=== PATIENT | female | born 1970 | race Two or more races ===

== ENCOUNTER 2018-11-23 19:49 | Inpatient (IN) | payer SELFPAY ==
[~2018-11-23] VITALS: Ht 162.6 cm; Wt 87.5 kg
[2018-11-23 21:01] LABS: Basophils # (auto) 0.1 uL; Basophils % (auto) 0.8 % (0.0-2.0); Eosinophils # (auto) 0.2 uL; Lymphocytes # (auto) 2.9 uL; Mean Corpuscular Volume 89.2 fL (80.0-100.0); White Blood Cell 8.5 10^3/uL (4.4-10.8)
[2018-11-23 21:03] LABS: Eosinophils % (auto) 2.4 % (0.0-7.0); Hemoglobin 14.8 g/dL (12.2-16.2); Lymphocytes % (auto) 34.1 % (10.0-50.0); Mean Corpuscular Hemoglobin 30.6 pg (28.0-32.0); Mean Corpuscular Hgb Conc. 34.3 g/dL (32.0-36.0); Monocytes # (auto) 0.5 uL; Monocytes % (auto) 6.3 % (0.0-12.0); Neutrophils # (auto) 4.8 uL; Neutrophils % (auto) 56.4 % (37.0-80.0); Nucleated Red Blood Cells % 0.3 %; Red Blood Cells 4.83 10^6/uL (4.0-5.20); Red Cell Distribution Width 12.3 % (11.8-14.3)
[2018-11-23 21:10] LABS: Platelet Count (auto) 451 10^3/uL (140-450)
[2018-11-23 21:12] LABS: Urine Bacteria FEW /hpf (None Seen); Urine Blood 1+ /uL (Negative); Urine Specific Gravity 1.021 (1.001-1.035); Urine WBC 1 /hpf (0 - 5)
[2018-11-23 21:16] LABS: Albumin 3.7 g/dL (3.4-5.0); Potassium 3.7 mmol/L (3.5-5.1)
[2018-11-23 21:20] LABS: Bilirubin, Total 0.3 mg/dL (0.2-1.0); Total Protein 8.2 g/dL (6.4-8.2)
[2018-11-24] MEDS ORDERED: MORPHINE SULFATE 4 MG/ML SYR/VIAL IV ONE
[2018-11-24] MEDS ORDERED: SODIUM CHLORIDE 0.9% 1,000 ML IV ONE
[2018-11-24] MEDS ORDERED: ONDANSETRON HCL 4 MG/2 ML VIAL IV ONE
[2018-11-24] MEDS ORDERED: MORPHINE SULFATE 4 MG/ML SYR/VIAL IV PRN (02:45)
[2018-11-24] MEDS ORDERED: ACETAMINOPHEN 325 MG TAB PO PRN (02:45)
[2018-11-24] MEDS ORDERED: ONDANSETRON HCL 4 MG/2 ML VIAL IV PRN (02:45)
[2018-11-24] MEDS ORDERED: SODIUM CHLORIDE 0.9% 1,000 ML IV SCH (02:45)
--- NOTE | 2018-11-24 03:17 | NUR ---
MS admit from ER HOLLEY RANDALL admitted to tele/MS after NO SBAR WAS received. Patient oriented to SANG VEGA RN primary RN, unit, room, bed, and unit policies regarding patient care and visiting hours. Patient weighed by bedscale and encouraged to call if they need something. All questions and concerns addressed, patient verbalized understanding.
[2018-11-24 04:13] VITALS: BP 124/68
[2018-11-24] MEDS ORDERED: METF-371 PO (04:25)
[2018-11-24 05:00] VITALS: BP 99/52
[2018-11-24 08:18] LABS: BUN/Creatinine Ratio 16.4; Calcium 8.1 mg/dL (8.5-10.1); Potassium 3.6 mmol/L (3.5-5.1)
[2018-11-24 08:59] VITALS: BP 115/61
[2018-11-24] MEDS: FAMOTIDINE 20 MG TAB PO SCH ×2 (10:00→10:38)
[2018-11-24 13:00] VITALS: BP 124/71
[2018-11-24] MEDS: SOD CHL 0.45% WITH 20MEQ KCL 1,000 ML IV SCH (15:45)
[2018-11-24] MEDS: HYDROcodone-ACET 5/325MG TAB PO PRN ×3 (15:47→18:17)
[2018-11-24 17:01] VITALS: BP 126/65
--- NOTE | 2018-11-24 19:00 | NUR ---
OPENING NOTE Received report from day shift RN. Patient is A&O X's 4 with no s/s of distress. Educated patient on POC and to use call light when in need of assistance. Patient verbalized understanding. Bed is in lowest/locked position with side rails up X's 2 and call light is within reach of patient. Will continue care. Educated patient to begin clear liquids slowly and to notify me if there is an increase in pain or if any nausea occurs after.
[2018-11-24 21:24] VITALS: BP 115/65
--- NOTE | 2018-11-24 22:29 | NUR ---
ROUNDS Patient in bed, with no s/s of distress. She reports her pain to be a 3/10. She said she feels comfortable. Will continue care
[2018-11-25 04:41] VITALS: BP 97/58
[2018-11-25] MEDS: SOD CHL 0.45% WITH 20MEQ KCL 1,000 ML IV SCH ×2 (05:05→09:44)
[2018-11-25 05:44] LABS: Basophils # (auto) 0 uL; Basophils % (auto) 0.6 % (0.0-2.0); Eosinophils # (auto) 0.2 uL; Eosinophils % (auto) 2.6 % (0.0-7.0); Hematocrit 38.4 % (36.0-46.0); Hemoglobin 13.1 g/dL (12.2-16.2); Lymphocytes # (auto) 2.4 uL; Lymphocytes % (auto) 40.3 % (10.0-50.0); Mean Corpuscular Hemoglobin 30.8 pg (28.0-32.0); Mean Corpuscular Hgb Conc. 34.3 g/dL (32.0-36.0); Mean Corpuscular Volume 89.9 fL (80.0-100.0); Monocytes # (auto) 0.4 uL; Monocytes % (auto) 7.4 % (0.0-12.0); Neutrophils % (auto) 49.1 % (37.0-80.0); Nucleated Red Blood Cells % 0.1 %; Platelet Count (auto) 360 10^3/uL (140-450); Red Blood Cells 4.27 10^6/uL (4.0-5.20); Red Cell Distribution Width 12.3 % (11.8-14.3)
[2018-11-25 05:59] LABS: Albumin 3.4 g/dL (3.4-5.0); Potassium 3.9 mmol/L (3.5-5.1)
[2018-11-25 06:02] LABS: BUN/Creatinine Ratio 8.6; Bilirubin, Total 0.5 mg/dL (0.2-1.0); Calcium 8.4 mg/dL (8.5-10.1)
[2018-11-25 09:00] VITALS: BP 105/73
[2018-11-25] MEDS: FAMOTIDINE 20 MG TAB PO SCH ×2 (09:44→22:00)
[2018-11-25] MEDS: HYDROcodone-ACET 5/325MG TAB PO PRN (12:21)
--- NOTE | 2018-11-25 12:21 | NUR ---
Patient stated she's in pain, at 6/10 at this time. [place] 5/325 PO given for pain as ordered. Family at bedside.
[2018-11-25 13:00] VITALS: BP 121/83
[2018-11-25 17:00] VITALS: BP 105/60
--- NOTE | 2018-11-25 19:20 | NUR ---
Opening Shift Note Assumed care of patient, awake and alert. Denies distress/SOB or pain. Instructed on POC and to call for assist PRN, will continue to monitor for changes Q1hr and PRN. Call light within reach.
[2018-11-25 21:32] VITALS: BP 111/67
[2018-11-26 04:05] VITALS: BP 98/60
--- NOTE | 2018-11-26 07:50 | NUR ---
Patient in bed, awake, oriented x4. No acute distress noted.
[2018-11-26 09:02] VITALS: BP 105/64
--- NOTE | 2018-11-26 10:10 | NUR ---
Nilson Alan came over. to advance the diet to solid food, if patient able to tolerate it, patient is okay to go home on GI perspective,
[2018-11-26] MEDS: FAMOTIDINE 20 MG TAB PO SCH (10:20)
--- NOTE | 2018-11-26 10:24 | NUR ---
Tylenol PO given for pain as ordered. Family at bedside.
--- NOTE | 2018-11-26 11:00 | NUR ---
Patient is ambulatory, steady gait noted.
[2018-11-26 13:22] VITALS: BP 104/75
[2018-11-26 14:59] VITALS: BP 104/75
[2018-11-26 15:06] VITALS: BP 104/75
--- NOTE | 2018-11-26 15:30 | NUR ---
Discharge instructions given as ordered. Patient has no primary physician. Patient will wait for her insurance approval. All questions and concerns addressed. Patient verbalized understanding. Medication reconciliation form completed and copy given to patient. IV removed with catheter intact, pressure dressing applied. Patient is ambulatory, refused to be taken to vehicle via wheelchair, patient with all personal belongings, accompanied by family member. No distress noted at time of departure.
== END 2018-11-26 15:30 | disposition home or self-care (01) | DRG 440 ==
LOC: ER 19:57 → OVERFLOW 19:58 → WEST WING 11-24 03:47
PROVIDERS: ADMIT Nurse Practitioner; ATTEND Internal Medicine Pulmonary Disease
DX: K85.00 Idiopathic acute pancreatitis without necrosis or infection (principal); E66.9 Obesity, unspecified; E78.1 Pure hyperglyceridemia; K76.0 Fatty (change of) liver, not elsewhere classified; E11.65 Type 2 diabetes mellitus with hyperglycemia; Z90.49 Acquired absence of other specified parts of digestive tract; Z79.899 Other long term (current) drug therapy; Z68.33 Body mass index [BMI] 33.0-33.9, adult
CPT/HCPCS: 36415; 71045; 74176; 76705; 80048; 80053; 81001; 82150; 83036; 83690; 83735; 84478; 85025; G0378; J2405

== ENCOUNTER 2022-06-09 08:33 | Day surgery (SDC) | payer MEDICAID, OTHER ==
[2022-06-08 12:40] LABS: Basophils # (auto) 0.1 10 ^3/uL (0-0.2); Basophils % (auto) 0.8 % (0.0-2.0); Eosinophils # (auto) 0.2 10 ^3/uL (0-0.8); Hematocrit 44.7 % (36.0-46.0); Hemoglobin 15.6 g/dL (12.2-16.2); Lymphocytes % (auto) 31.8 % (10.0-50.0); Mean Corpuscular Hemoglobin 31.1 pg (28.0-32.0); Mean Corpuscular Hgb Conc. 34.8 g/dL (32.0-36.0); Mean Corpuscular Volume 89.5 fL (80.0-100.0); Monocytes # (auto) 0.5 10 ^3/uL (0-1.3); Monocytes % (auto) 8.5 % (0.0-12.0); Neutrophils # (auto) 3.5 10 ^3/uL (1.6-8.6); Neutrophils % (auto) 55.9 % (37.0-80.0); Nucleated Red Blood Cells % 0.7 %; Red Cell Distribution Width 12.7 % (11.8-14.3); White Blood Cell 6.2 10^3/uL (4.4-10.8)
[2022-06-08 12:59] LABS: INR 0.92 (0.9-1.15)
[2022-06-08 13:06] LABS: Albumin 3.6 g/dL (3.4-5.0); Calcium 9.4 mg/dL (8.5-10.1); Potassium 3.9 mmol/L (3.5-5.1)
[2022-06-08 13:10] LABS: Bilirubin, Total 0.4 mg/dL (0.2-1.0); Total Protein 8.2 g/dL (6.4-8.2)
[2022-06-08 16:11] LABS: BUN/Creatinine Ratio 15.2 (10.0-20.0)
[~2022-06-09] VITALS: Ht 160 cm; Wt 81.6 kg
[~2022-06-09 08:33] MED LIST: EMPA1TAB3 PO; GLIM-5 PO; LISI2.5T47 PO; METF-371 PO
[2022-06-09] MEDS ORDERED: LIDOCAINE VISCOUS 2% 15ML UD ONE (09:04)
[2022-06-09] MEDS ORDERED: SODIUM CHLORIDE LOCK 10 ML ONE (09:04)
[2022-06-09] MEDS ORDERED: diphenhdrAMINE HCL 50 MG/1 ML VL ONE (09:05)
[2022-06-09] MEDS: MIDAZOLAM HCL 5 MG/ML-1ML VIAL ONE ×2 (09:13→09:16)
[2022-06-09] MEDS: fentaNYL CITRATE 100 MCG/2 ML VL ONE ×2 (09:13→09:16)
[2022-06-09 09:42] VITALS: BP 121/74
== END 2022-06-09 10:05 | disposition home or self-care (01) ==
LOC: GI 08:33
PROVIDERS: ATTEND Internal Medicine Gastroenterology
DX: K74.69 Other cirrhosis of liver (principal); R10.11 Right upper quadrant pain; K29.50 Unspecified chronic gastritis without bleeding; Z20.822 Contact with and (suspected) exposure to COVID-19; E11.9 Type 2 diabetes mellitus without complications; Z79.899 Other long term (current) drug therapy
CPT/HCPCS: 36415; 43239; 80053; 82962; 84702; 85025; 85610; 85730; J1200; J2250; J3010; U0003

== ENCOUNTER 2024-03-21 07:02 | Day surgery (SDC) | payer OTHER ==
[~2024-03-21] VITALS: Ht 162.6 cm; Wt 77.1 kg
[~2024-03-21 07:02] MED LIST changes: -GLIM-5 PO; +METOCLOPRAMIDE HCL 5MG/ml INJ 2ml VIAL IV ONE; +ONDANSETRON HCL 4 MG/2 ML VIAL IV ONE; +PANT40T PO
[2024-03-21] MEDS ORDERED: PROPOFOL 10 MG/ML 20 ML IV ONE (07:53)
[2024-03-21] MEDS ORDERED: LIDOCAINE 2% (LOCAL ANESTH.) PF 5ml SDV ONE (07:53)
[2024-03-21 08:18] VITALS: RESP 18; TEMP 97.8; O2SAT 99
--- NOTE | 2024-03-21 08:18 | DVHHP2 ---
GI H&P Pre-Op Assessment Date: 03/21/24 Chief complaint: cirrhosis, epigastric pain HPI: per clinic note Past medical history: per clinic note Past surgical history: per clinic note Family history: per clinic note Physical exam: General: NAD, AAOX3 HEENT: PERRL, no scleral icterus, normal hearing, gums without lesions or bleeding, oropharynx clear without erythema or exudate. Neck: Supple without enlargement of the thyroid, or lymphadenopathy. Chest: Normal size and shape, no tenderness, lung frazier clear to auscultation and percussion, nonlabored breathing. Heart: RRR, no murmur Abdomen: non-distended, no tenderness to palpation, +BS, no hepatosplenomegaly Extremities: no edema Neurological: CN II-XII intact, sensation intact in all extremities, 5+ strength in all extremities Skin: No rashes, No jaundice Assessment: - cirrhosis, epigastric pain Plan: - EGD - Risks (bleeding, infection, perforation, reaction to sedation medications and cardiopulmonary arrest) and benefit of the procedure were explained to patient. Patient agrees to undergo the procedure. TAMIKO ORELLANA MD Mar 21, 2024 08:18
--- NOTE | 2024-03-21 08:20 | DVHDS2 ---
Physician Discharge Progress N Final Diagnosis: mild gastritis Operations or Procedures: Operations or Procedures EGD with biopsy Condition on Discharge: Good Disposition: Home Discharge Instructions: Diet: Regular Activity: No Restrictions, As Tolerated Medications: resume previous home medications Follow Up Care: Discharge Statement: "Patient was advised to return to the ER or call 911 if any headaches, dizziness, shortness of breath, chest pain, abdominal pain, bleeding, fevers, or worsening of medical condition. Patient was counseled about treatment plan, medications, possible side effects, patientverbalized understanding. All questions were answered to the best of my ability. This discharge took greater then 30 minutes in planning, reviewing documentation, counseling the patient, and discussing with other team members." TAMIKO ORELLANA MD Mar 21, 2024 08:20
--- NOTE | 2024-03-21 08:20 | DVHOP2 ---
Operative Report DATE OF OPERATION: 03/21/24 PROCEDURE: Upper Endoscopy. PREOPERATIVE INDICATION: The patient is a 53 -year-old female undergoing endoscopy for cirrhosis, epigastric pain. POSTOPERATIVE DIAGNOSES: 1. Mild gastritis. 2. No esophageal varices PROCEDURE PERFORMED BY: Felix Soares SCOPE: Olympus videoendoscope. ASA CLASS: 3 PREOPERATIVE MEDICATIONS: SHIRLENE Hannah CRNA PROCEDURE IN DETAIL: After obtaining an informed consent, the patient was placed on left lateral decubitus position. The patient was then sedated with the above medications. A bite block was placed between her teeth. The endoscope was then passed through the oropharynx, into the esophagus, and thr ough the stomach and pylorus up to the second and third part of the duodenum. The duodenum was normal in appearance. There was mild gastritis. Gastric biopsies were obtained. The GEJ was normal in appearance at 35 cm. The esophagus was normal in appearance. There was no esophageal varices. The endoscope was then withdrawn. The patient tolerated the procedure well without difficulty. COMPLICATIONS : None SPECIMENS: Gastric biopsies DISPOSITION: D/C to home PLAN: 1. Await for biopsy result FELIX SOARES MD Mar 21, 2024 08:20
[2024-03-21 08:40] VITALS: BP 103/66; PULSE 76; RESP 15; O2SAT 76
== END 2024-03-21 08:55 | disposition home or self-care (01) ==
LOC: GI 07:02
PROVIDERS: ATTEND Internal Medicine Gastroenterology
DX: K29.50 Unspecified chronic gastritis without bleeding (principal); B96.81 Helicobacter pylori [H. pylori] as the cause of diseases classified elsewhere; K74.69 Other cirrhosis of liver; E11.22 Type 2 diabetes mellitus with diabetic chronic kidney disease; N18.9 Chronic kidney disease, unspecified; Z90.49 Acquired absence of other specified parts of digestive tract; Z79.84 Long term (current) use of oral hypoglycemic drugs; Z98.890 Other specified postprocedural states
CPT/HCPCS: 43239; 82962; 88305; 88312; 88342; J2003; J2704; J7030